=== PATIENT | male | born 1995 | race Caucasian/White ===

== ENCOUNTER 2017-06-23 15:36 | Emergency (ER) | payer OTHER ==
[2017-06-23 16:08] VITALS: BP 123/84
[2017-06-23] MEDS ORDERED: IBUPROFEN 800 MG TABLET PO STA (17:43)
[2017-06-23] MEDS ORDERED: ONDANSETRON ODT 4 MG TABLET TL STA (17:43)
--- NOTE | 2017-06-23 17:46 | ED Physician Documentation ---
History of Present Illness - Stated complaint Stated Complaint: N/V/D FEVER, CHILLS - Chief complaint Chief Complaint: General - History obtained from History obtained from: Patient - History of Present Illness Timing: Other (Sick for 24 hours of vomiting, fevers, body aches and runny nose. ) Review of Systems Constitutional: reports: Fever, Chills, Myalgias, Fatigue Ears: denies: Ear pain Nose: reports: Rhinorrhea / runny nose Respiratory: reports: Cough. denies: Dyspnea GI: reports: Nausea, Vomiting. denies: Abdominal Pain PD PAST MEDICAL HISTORY - Present Medications Home Medications: Ambulatory Orders Medication Instructions Recorded Confirmed Ibuprofen [Motrin] 800 mg PO Q8H PRN #30 tablet 06/23/17 Ondansetron HCl [Zofran] 4 mg PO Q6H PRN #10 tablet 06/23/17 - Allergies Allergies/Adverse Reactions: Allergies Allergy/AdvReac Type Severity Reaction Status Date / Time No Known Drug Allergies Allergy Verified 06/23/17 16:08 PD ED PE NORMAL - Vitals Vital signs reviewed: Yes - General General: Alert and oriented X 3, No acute distress - HEENT HEENT: PERRL, EOMI, Ears normal, Moist mucous membranes, Pharynx benign - Neck Neck: Supple, no meningeal sign, No bony TTP - Cardiac Cardiac: RRR, No murmur - Respiratory Respiratory: No respiratory distress, Clear bilaterally - Abdomen Abdomen: Non tender - Derm Derm: No rash - Neuro Neuro: Alert and oriented X 3, Normal speech Results - Vitals Vitals: Vital Signs - 24 hr 06/23/17 16:03 Temperature 38.0 C H Heart Rate 79 Respiratory 18 Rate Blood Pressure 123/84 H O2 Saturation 100 Oxygen O2 Source Room air PD MEDICAL DECISION MAKING - ED course ED course: In the midst of this influenza outbreak this is very consistent with influenza and conservative care was advised. Departure - Departure Disposition: 01 Home, Self Care Clinical Impression: Influenza Condition: Good Record reviewed to determine appropriate education?: Yes Instructions: ED Flu Prescriptions: Ibuprofen [Motrin] 800 mg PO Q8H PRN #30 tablet PRN Reason: PAIN &/OR FEVER Ondansetron HCl [Zofran] 4 mg PO Q6H PRN #10 tablet PRN Reason: Nausea / Vomiting Comments: Return if you get better and then worsen or generally worsen. Push fluids. Forms: Activity restrictions
== END 2017-06-23 17:57 | disposition home or self-care (01) ==
LOC: ED 15:36
DX: J11.1 Influenza due to unidentified influenza virus with other respiratory manifestations (principal)
CPT/HCPCS: 99283; A9270; Q0162

== ENCOUNTER 2018-05-14 07:57 | Day surgery (SDC) | payer OTHER ==
[2018-05-14] MEDS ORDERED: ceFAZolin 2 GM/50 ML 2 GM/50 ML BAG IV ONE (08:22)
[2018-05-14] MEDS ORDERED: BUPIVACAINE 0.25% PF 30 ML VIAL ONE (08:42)
[2018-05-14] MEDS ORDERED: EPINEPHrine 1 MG/ML AMP ONE (08:42)
[2018-05-14] MEDS ORDERED: LACTATED RINGERS 1,000 ML IV ONE ×4 (08:45→14:10)
--- NOTE | 2018-05-14 08:47 | ANESTHESIA ---
Pre-Anesthesia VS, & Labs - Diagnosis Right ACl tear - Procedure Arthroscopic ACl repair Vital Signs: Temp Pulse Resp BP Pulse Ox 36.6 C 58 L 16 108/70 99 05/14/18 08:29 05/14/18 08:29 05/14/18 08:29 05/14/18 08:29 05/14/18 08:29 Height 5 ft 7 in Weight (kg) 73.94 kg Body Mass Index 24.5 - NPO >8 hours - Lab Results Lab results reviewed: No Home Medications and Allergies Home Medications: Ambulatory Orders No Known Home Medications 05/11/18 No Known Home Medications 05/11/18 Allergies/Adverse Reactions: Allergies Allergy/AdvReac Type Severity Reaction Status Date / Time No Known Drug Allergies Allergy Verified 05/11/18 15:56 Anes History & Medical History - Anesthetic History Anesthesia Complications: reports: No previous complications Family history of Anesthesia Complications: Denies Family history of Malignant Hyperthermia: Denies - Medical History Cardiovascular: reports: None Pulmonary: reports: None Gastrointestinal: reports: None Urinary: reports: None Neuro: reports: None Musculoskeletal: reports: Other Endocrine/Autoimmune: reports: None Blood Disorders: reports: None Skin: reports: None Smoking Status: Never smoker Psychosocial: reports: No issues indicated Exam General: Alert Dental: WNL Mouth Opening: Greater than 4 Fingerbreadths Neck Mobility: Normal Mallampati classification: I Thyromental Distance: greater than 6 cm Respiratory: Lungs clear Cardiovascular: Regular rate Neurological: Normal gait Mental/Cognitive Status: Alert/Oriented X3 Cognitive Status: Within normal limits Plan Anesthesia Type: General Consent for Procedure(s) Verified and Reviewed: Yes Code Status: Attempt Resuscitation ASA classification: 1-Healthy patient Is this case an emergency?: No
[2018-05-14] MEDS ORDERED: MIDAZOLAM 2 MG/2 ML VIAL IVP ONE (10:45)
[2018-05-14] MEDS ORDERED: ACETAMINOPHEN 1,000 MG/100 ML 100 ML IV ONE (10:45)
[2018-05-14] MEDS ORDERED: KETOROLAC 30 MG/ML VIAL IVP ONE (10:45)
[2018-05-14] MEDS ORDERED: PHENYLEPHRINE 50 MG/5 ML VIAL IV ONE (10:45)
[2018-05-14] MEDS ORDERED: DEXAMETHASONE 4 MG/ML VIAL IVP ONE (10:45)
[2018-05-14] MEDS ORDERED: LIDOCAINE-MPF 2% 5 ML VIAL IM ONE (10:45)
[2018-05-14] MEDS ORDERED: fentaNYL 100 MCG/2 ML VIAL IVP ONE (10:45)
[2018-05-14] MEDS ORDERED: PROPOFOL 200 MG/20 ML VIAL IVP ONE (10:45)
[2018-05-14] MEDS ORDERED: ONDANSETRON 4 MG/2 ML VIAL IVP ONE (10:45)
[2018-05-14] MEDS ORDERED: BUPIVACAINE 0.25% PF 30 ML VIAL SUBQ ONE (10:57)
[2018-05-14] MEDS ORDERED: ONDANSETRON 4 MG/2 ML VIAL IVP PRN (14:23)
[2018-05-14] MEDS ORDERED: oxyCODONE 5 MG TABLET PO PRN (14:23)
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
[2018-05-14] MEDS ORDERED: MORPHINE 2 MG/ML CARPUJECT ONE (15:21)
[2018-05-14] MEDS ORDERED: ONDANSETRON 4 MG/2 ML VIAL ONE (15:44)
[2018-05-14] MEDS ORDERED: oxyCODONE 5 MG TABLET ONE (15:58)
[2018-05-14 16:36] VITALS: BP 125/60
== END 2018-05-14 07:58 | disposition home or self-care (01) ==
LOC: SDS 07:57
PROVIDERS: ATTEND Orthopaedic Surgery
PROC: 0SQC4ZZ Repair Right Knee Joint, Percutaneous Endoscopic Approach (ICD-10-PCS; 2018-05-14)
PROC: 0LBQ0ZZ Excision of Right Knee Tendon, Open Approach (ICD-10-PCS; 2018-05-14)
PROC: 0MRN47Z Replacement of Right Knee Bursa and Ligament with Autologous Tissue Substitute, Percutaneous Endoscopic Approach (ICD-10-PCS; principal; 2018-05-14 10:00)
DX: S83.511A Sprain of anterior cruciate ligament of right knee, initial encounter (principal); S83.281A Other tear of lateral meniscus, current injury, right knee, initial encounter
CPT/HCPCS: 29882; 29888; A9270; C1713; J0131; J0690; J7120

== ENCOUNTER 2020-04-23 14:05 | Emergency (ER) | payer OTHER ==
[2020-04-23] MEDS ORDERED: KETOROLAC 60 MG/2 ML VIAL IM STA (14:22)
--- NOTE | 2020-04-23 14:23 | ED Physician Documentation ---
PD HPI MALE - Stated complaint Stated Complaint: ABD PX - Chief complaint Chief Complaint: Abd Pain - History obtained from History obtained from: Patient - Additional information Additional information: Healthy 24-year-old gentleman, active duty in the [employer] started to develop severe right testicular pain today. The pain is episodic, lasts about a minute and then goes away. When it happens it is associated with sweats and nausea but no vomiting. Denies back pain or hematuria. Review of Systems Ten Systems: 10 systems reviewed and negative Constitutional: denies: Fever, Chills Nose: denies: Rhinorrhea / runny nose, Congestion Cardiac: denies: Chest pain / pressure, Palpitations Respiratory: denies: Dyspnea, Cough GI: denies: Abdominal Pain PD PAST MEDICAL HISTORY - Past Medical History Cardiovascular: None Respiratory: None Neuro: None Endocrine/Autoimmune: None GI: None : None HEENT: None Psych: None Musculoskeletal: Other Derm: None - Past Surgical History Past Surgical History: No - Present Medications Home Medications: Ambulatory Orders Medication Instructions Recorded Confirmed No Known Home Medications 05/11/18 05/11/18 - Allergies Allergies/Adverse Reactions: Allergies Allergy/AdvReac Type Severity Reaction Status Date / Time No Known Drug Allergies Allergy Verified 04/23/20 14:18 - Social History Does the pt smoke?: No Smoking Status: Never smoker Does the pt drink ETOH?: Yes Does the pt have substance abuse?: No - Immunizations Immunizations are current?: No Immunizations: TDAP current <10years PD ED PE NORMAL - Vitals Vital signs reviewed: Yes - General General: Alert and oriented X 3, No acute distress - HEENT HEENT: PERRL, EOMI - Neck Neck: Supple, no meningeal sign, No bony TTP - Abdomen Abdomen: Soft, Non tender - Male Male : Other (Inferior R testicular tenderness. Nl cremaster. No swelling, no hernia.) - Neuro Neuro: Alert and oriented X 3, Normal speech Results - Vitals Vitals: Vital Signs - 24 hr 04/23/20 04/23/20 04/23/20 14:16 14:21 14:48 Temperature 36.8 C 36.8 C Heart Rate 58 L 58 L 59 L Respiratory 18 18 18 Rate Blood Pressure 124/77 124/77 117/69 O2 Saturation 100 100 97 04/23/20 04/23/20 04/23/20 15:18 15:30 16:00 Temperature Heart Rate 56 L 53 L 55 L Respiratory 17 14 18 Rate Blood Pressure 111/69 101/67 113/74 O2 Saturation 99 98 99 Oxygen O2 Source Room air - Labs Labs: Laboratory Tests 04/23/20 04/23/20 04/23/20 14:12 14:37 14:37 WBC 5.2 RBC 5.38 Hgb 15.6 Hct 47.3 MCV 87.9 MCH 29.0 MCHC 33.0 RDW 13.5 Plt Count 188 MPV 11.1 Neut # (Auto) 3.2 Lymph # (Auto) 1.3 L [place] # (Auto) 0.5 Eos # (Auto) 0.2 Baso # (Auto) 0.0 Absolute Nucleated RBC 0.00 Nucleated RBC % 0.0 Sodium 139 Potassium 3.7 Chloride 98 L Carbon Dioxide 30 Anion Gap 11.0 BUN 13 Creatinine 0.9 Estimated GFR (MDRD) 103 Glucose 102 H Calcium 9.6 Total Bilirubin 0.8 AST 92 H ALT 119 H Alkaline Phosphatase 51 Total Protein 8.2 Albumin 4.7 Globulin 3.5 Albumin/Globulin Ratio 1.3 Lipase 29 Urine Color YELLOW Urine Clarity CLEAR Urine pH 8.0 H Ur Specific [place] 1.020 Urine Protein NEGATIVE Urine Glucose (UA) NEGATIVE Urine Ketones NEGATIVE Urine Occult Blood NEGATIVE Urine Nitrite NEGATIVE Urine Bilirubin NEGATIVE Urine Urobilinogen 0.2 (NORMAL) Ur Leukocyte Esterase NEGATIVE Ur Microscopic Review NOT INDICATED Urine Culture Comments NOT INDICATED - Rads (name of study) testicular sono Radiology: EMP read contemporaneously (Right-sided varicocele and trace bilateral hydroceles) CT KUB Radiology: EMP read contemporaneously (Possible mesenteric adenitis otherwise no acute disease) PD MEDICAL DECISION MAKING - ED course ED course: 24-year-old gentleman presents with right testicular pain. He is not sexually active. Exam shows some tenderness but normal lie, normal cremaster reflexes. He was feeling better and looking quite comfortable after Toradol shot. Testicular ultrasound showed a varicocele and trace hydroceles, labs were notable for very mild transaminitis of unclear acuity. CT done to further evaluate this and to rule out atypical renal colic which was negative. Close fo llow-up was advised. Departure - Departure Disposition: 01 Home, Self Care Clinical Impression: Testicular pain, right, Right varicocele Abdominal pain Qualifiers: Abdominal location: unspecified location Qualified Code(s): R10.9 - Unspecified abdominal pain Condition: Good Record reviewed to determine appropriate education?: Yes Instructions: ED Varicocele Comments: Return if worsening or if not better in the next 12 to 24 hours. [place] want to recheck mildly elevated liver enzymes with an AST of 92 and an ALT of 119.
[2020-04-23 14:35] LABS: BILIRUBIN,URINE NEGATIVE (NEGATIVE); GLUCOSE, URINE (UA) NEGATIVE (NEGATIVE); KETONES,URINE (UA) NEGATIVE (NEGATIVE); LEUKOCYTE ESTERASE, URINE NEGATIVE (NEGATIVE); NITRITE,URINE NEGATIVE (NEGATIVE); OCCULT BLOOD,URINE NEGATIVE (NEGATIVE); PROTEIN,URINE NEGATIVE (NEGATIVE); UROBILINOGEN,URINE 0.2 (NORMAL) E.U./dL (NORMAL)
[2020-04-23 14:46] LABS: BASOPHILS % (AUTO) 0.4 %; EOSINOPHILS # (AUTO) 0.2 10^3/uL (0.0-0.7); EOSINOPHILS % (AUTO) 4.1 %; HGB - HEMOGLOBIN 15.6 g/dL (14.0-18.0); LYMPHOCYTES # (AUTO) 1.3 10^3/uL (1.5-3.5); LYMPHOCYTES % (AUTO) 25.5 %; MEAN CORPUSCULAR VOLUME 87.9 fL (80.0-94.0); MEAN PLATELET VOLUME 11.1 fL (7.4-11.4); MONOCYTES # (AUTO) 0.5 10^3/uL (0.0-1.0); MONOCYTES % (AUTO) 8.9 %; NEUTROPHILS # (AUTO) 3.2 10^3/uL (1.5-6.6); NEUTROPHILS % (AUTO) 60.9 %; PLT - PLATELET COUNT 188 10^3/uL (130-450); RED BLOOD COUNT 5.38 10^6/uL (4.70-6.10); RED CELL DISTRIBUTION WIDTH 13.5 % (12.0-15.0); WHITE BLOOD COUNT 5.2 x10^3/uL (4.8-10.8)
[2020-04-23 14:48] LABS: CLARITY,URINE CLEAR (CLEAR)
[2020-04-23 15:01] LABS: ALBUMIN 4.7 g/dL (3.2-5.5); ALBUMIN/GLOBULIN RATIO 1.3 (1.0-2.2); BILIRUBIN,TOTAL 0.8 mg/dL (0.2-1.0); CALCIUM 9.6 mg/dL (8.5-10.3); CREATININE 0.9 mg/dL (0.6-1.2); TOTAL PROTEIN 8.2 g/dL (6.7-8.2)
--- NOTE | 2020-04-23 16:02 | Ultrasound Report ---
PROCEDURE: Testicle w/Doppler INDICATIONS: r testicle pain TECHNIQUE: Real-time scanning was performed of the scrotum and testicles, with image documentation. Color and p ulse Doppler interrogation was performed of both testicles. COMPARISON: None. FINDINGS: Right: Testicle is normal in size at 3.9 x 2.0 x 2.9 cm, and homogenous in echotexture. Epididymis is normal in overall size and morphology. A hydrocele is present. Overlying scrotal skin is normal in thickness. Right-sided varicocele. Left: Testicle is normal in size at 4.2 x 2.3 x 2.5 cm, and homogeneous in echotexture. Epididymis is normal in overall size and morphology. A hydrocele is present. Overlying scrotal skin is normal in thickness. Doppler: Color and pulse Doppler demonstrate normal and symmetric arterial flow in both testicles. IMPRESSION: 1. Right-sided varicocele. 2. Trace bilateral hydroceles. Reviewed by: Toby Moctezuma MD on 04/23/2020 3:01 PM [place] Approved by: Toby Moctezuma MD on 04/23/2020 3:01 PM [facility] Station ID: [id number]
--- NOTE | 2020-04-23 16:16 | CT Report ---
PROCEDURE: Abdomen/Pelvis WO INDICATIONS: R testicular pain TECHNIQUE: Noncontrast 5 mm thick sections acquired from the diaphragms to the symphysis. 5 mm coronal and sagi ttal reformats were then performed. For radiation dose reduction, the following was used: automated exposure control, adjustment of mA and/or kV according to patient size. COMPARISON: None. FINDINGS: Image quality: Excellent. ABDOMEN: Lung bases: Lung bases are clear. Heart size is normal. Solid organs: Liver and spleen are normal in size. Gallbladder Pancreas is normal in contours. No adrenal nodules. Kidneys are normal in size, without hydronephrosis or nephrolithiasis. Peritoneum and bowel: Unenhanced bowel loops demonstrate normal wall thickness and caliber. Normal appendix. No free fluid or air. Nodes and vessels: No retroperitoneal or mesenteric adenopathy by size criteria. Scattered mildly p rominent mesenteric lymph nodes are present measuring less than 10 mm short axis. Aorta and inferior vena cava are normal in caliber. Miscellaneous: No ventral hernias. PELVIS: Genitourinary: Bladder wall thickness is normal. Miscellaneous: No inguinal hernias or adenopathy. Bones: No suspicious bony lesions. No vertebral body compression fractures. IMPRESSION: 1. No evidence of urinary tract calcification, nor obstruction. 2. Normal appendix. 3. Mildly prominent mesenteric lymph nodes, consistent with mesenteric adenitis in the appropriate cl inical setting. Reviewed by: Toby Moctezuma MD on 04/23/2020 3:15 PM [facility] Approved by: Toby Moctezuma MD on 04/23/2020 3:15 PM [facility] Station ID: [id number]
[2020-04-23 16:26] VITALS: BP 113/74
== END 2020-04-23 16:33 | disposition home or self-care (01) ==
LOC: ED 14:05
DX: I86.1 Scrotal varices (principal); N43.3 Hydrocele, unspecified
CPT/HCPCS: 36415; 74176; 76870; 80053; 81001; 81003; 83690; 85025; 87086; 87491; 87591; 87661; 93975; 96372; 99284

== ENCOUNTER 2020-04-24 09:05 | Emergency (ER) | payer OTHER ==
[2020-04-24 10:14] VITALS: BP 116/58
--- NOTE | 2020-04-24 17:43 | ED Physician Documentation ---
History of Present Illness - Stated complaint Stated Complaint: MALE - Chief complaint Chief Complaint: Abd Pain - History obtained from History obtained from: Patient - Additonal information Additional information: 24-year-old man seen yesterday in the emergency department returns for medical screening exam because he thinks that his testicle got slightly bigger. Pain has improved from yesterday and he is asymptomatic at present. Review of Systems Ten Systems: 10 systems reviewed and negative GI: denies: Abdominal Pain : denies: Dysuria, Frequency PD PAST MEDICAL HISTORY - Past Medical History Past Medical History: No Cardiovascular: None Respiratory: None Neuro: None Endocrine/Autoimmune: None GI: None : None HEENT: None Psych: None Musculoskeletal: Other Derm: None - Past Surgical History Past Surgical History: No - Present Medications Home Medications: Ambulatory Orders Medication Instructions Recorded Confirmed No Known Home Medications 05/11/18 05/11/18 - Allergies Allergies/Adverse Reactions: Allergies Allergy/AdvReac Type Severity Reaction Status Date / Time pineapple Allergy Itching Verified 04/24/20 09:11 shellfish derived Allergy Itching Verified 04/24/20 09:11 - Social History Does the pt smoke?: No Smoking Status: Never smoker Does the pt drink ETOH?: Yes Does the pt have substance abuse?: No - Immunizations Immunizations are current?: Yes Immunizations: TDAP current <10years - POLST Patient has POLST: No PD ED PE NORMAL - Vitals Vital signs reviewed: Yes - General General: Alert and oriented X 3 - HEENT HEENT: Atraumatic - Neck Neck: Supple, no meningeal sign - Cardiac Cardiac: RRR - Respiratory Respiratory: No respiratory distress - Abdomen Abdomen: Normal bowel sounds, Non tender, Non distended - Male Male : Can Sterilizer present (male RN Balta), Other ( BL cremaster reflex. varicocele palpated in R testicle. otherwise normal male exam.) - Rectal Rectal: Deferred - Back Back: No CVA TTP - Derm Derm: Normal color, Warm and dry - Extremities Extremities: No deformity - Neuro Neuro: Alert and oriented X 3 - Psych Psych: Normal mood, Normal affect Results - Vitals Vitals: Vital Signs - 24 hr 04/24/20 04/24/20 09:11 10:13 Temperature 36.9 C 36.9 C Heart Rate 64 59 L Respiratory 16 18 Rate Blood Pressure 128/65 116/58 L O2 Saturation 98 98 Oxygen O2 Source Room air PD MEDICAL DECISION MAKING - ED course Complexity details: reviewed old records, d/w patient ED course: 24-year-old male presents for medical screening exam. Testicular exam performed and because he is not experiencing any pain or other symptoms at this time and is reassured I will discharge to follow-up with [facility] primary doctor. Return precautions given. Departure - Departure Disposition: 01 Home, Self Care Clinical Impression: Varicocele, Hydrocele Condition: Good Instructions: ED Varicocele Comments: You have been seen for varicocele and hydrocele of your testicles. You have good blood flow to the testicles. [place] Discharge Date/Time: 04/24/20 10:29
== END 2020-04-24 10:29 | disposition home or self-care (01) ==
LOC: ED 09:05
DX: I86.1 Scrotal varices (principal); N43.3 Hydrocele, unspecified
CPT/HCPCS: 99281; 99283